=== PATIENT | female | born 1945 | race Caucasian/White ===

== ENCOUNTER → 2016-03-09 | Outpatient (REF) | payer MEDICARE | LOC: M LAB REF 15:30 | PROVIDERS: ATTEND Physician Assistant | DX: N39.0 Urinary tract infection, site not specified (principal) ==

== ENCOUNTER → 2016-09-22 | Outpatient (REF) | payer MEDICARE | LOC: M LAB REF 09:34 | PROVIDERS: ATTEND Physician Assistant Medical | DX: S91.309A Unspecified open wound, unspecified foot, initial encounter (principal); X58.XXXA Exposure to other specified factors, initial encounter; Y92.89 Other specified places as the place of occurrence of the external cause; Y93.89 Activity, other specified; Y99.8 Other external cause status ==

== ENCOUNTER → 2016-11-14 | Outpatient (REF) | payer MEDICARE ==
[2016-11-14 20:52] LABS: YEAST LIKE CELL URINE AUTO SMALL
== END ==
LOC: M LAB REF 17:34
PROVIDERS: ATTEND Physician Assistant
DX: N39.0 Urinary tract infection, site not specified (principal)

== ENCOUNTER → 2019-07-27 | Outpatient (CLI) | payer MEDICARE ==
--- NOTE | 2019-07-27 14:06 | REP ---
CT brain: 07/27/2019. Indication: Headache. Dizziness. Technique: Unenhanced axial CT images of the brain were obtained from skull base to vertex. Comparison: None. Findings: There is no acute intracranial hemorrhage, acute cortical infarction, mass effect, hydrocephalus or acute calvarial fracture. Volume loss is present. There are patchy areas of white matter hypoattenuation throughout the cerebral hemispheres. Small mucous retention cyst is noted at the main inferior visualized left frontal sinus. The frontal sinuses are otherwise clear. Mastoid air cells are clear as well. Impression: No acute intracranial process. Age related volume loss and sequelae of chronic microangiopathic ischemic disease. Electronically Signed by Garrison Villareal DO 07/27/2019 01:58 P
== END ==
LOC: M RAD 12:55
PROVIDERS: ATTEND Physician Assistant Medical
DX: S09.90XA Unspecified injury of head, initial encounter (principal); J34.1 Cyst and mucocele of nose and nasal sinus; I67.82 Cerebral ischemia; X58.XXXA Exposure to other specified factors, initial encounter; Y92.9 Unspecified place or not applicable